=== PATIENT | male | born 1995 | race Two or more races ===

== ENCOUNTER 2021-02-15 10:43 | Emergency (ER) | payer OTHER ==
[~2021-02-15] VITALS: Ht 170.2 cm; Wt 81.0 kg
[2021-02-15 10:48] VITALS: BP 118/82
[2021-02-15] MEDS ORDERED: SULF1TAB48 MT (11:43)
[2021-02-15] MEDS ORDERED: CEPH500C2 MT (11:43)
== END 2021-02-15 11:53 | disposition home or self-care (01) ==
LOC: ER 11:44
DX: L02.212 Cutaneous abscess of back [any part, except buttock and flank] (principal); F17.200 Nicotine dependence, unspecified, uncomplicated
CPT/HCPCS: 99282